=== PATIENT | female | born 1980 | race Caucasian/White ===

== ENCOUNTER 2019-11-06 20:52 | Emergency (ER) | payer OTHER, SELFPAY ==
--- NOTE | 2019-11-06 20:55 | PC.NURSE ---
Patient states she my kid has no where else to go right now, so I may come back later. Patient left after being registered, not triaged.
== END 2019-11-06 20:55 | disposition left against medical advice (07) ==
DX: Z53.21 Procedure and treatment not carried out due to patient leaving prior to being seen by health care provider (principal)
CPT/HCPCS: 99199

== ENCOUNTER 2021-03-13 10:52 | Outpatient (CLI) | payer OTHER, SELFPAY ==
--- NOTE | ~2021-03-13 | US_ITS ---
EXAMINATION: US pelvic complete w TV EXAM DATE: 03/13/2021 11:24 INDICATION: Fibroid uterus. TECHNIQUE: Pelvic transabdominal and transvaginal sonogram was performed. There are multiple graysca le and Doppler images available for interpretation. There is no prior study for comparison. FINDINGS: Uterus measures 10.0 x 6.1 x 6.3 cm, with a 5 cm fibroid left central aspect of the uterus . Endometrial stripe measures 6 mm, within normal limits. There is a tiny nabothian cyst. There is n o free pelvic fluid. Right adnexa: The ovary measures 2.6 x 1.8 x 2.2 cm and is morphologically normal. Left adnexa: The ovary measures 3.3 x 2.5 x 3.8 cm and is morphologically normal. IMPRESSION: 1. Fibroid. Reviewed, dictated and finalized at location A. R PRESSER IMPRESSION: 1. Fibroid.
== END 2021-03-13 10:53 ==
DX: D25.9 Leiomyoma of uterus, unspecified (principal)
CPT/HCPCS: 76830; 76856